=== PATIENT | female | born 1945 | race Caucasian/White ===

== ENCOUNTER → 2018-01-15 | Outpatient (CLI) | payer MEDICARE, OTHER ==
[~2018-01-15] MED LIST: ACET-458 PO; AMLO10TA2 PO; BACL-19 PO; CALC1TAB2 PO; CHOL200074 PO; CITA10TA4 PO; DIPH25CA61 PO; FENT1PAT77 TD; FISH1CAP PO; FURO40TA6 PO; GABA-826 PO; GABA300C10 PO; HYDR-3245 PO; HYDR25TA6 PO; LISI-170 PO; LISI40TA PO; MELO15TA24 PO; METF500T9 PO; METH750T2 PO; METO-99 PO; METO50TA82 PO; MORP-52 PO; MULT-658 PO; OMEP-110 PO; OXYC1TAB9 PO; OXYC5CAP2 PO; POTA10CA PO; POTA10TA6 PO; PRAV20TA2 PO; TIZA4TAB PO; VERA120T5 PO
[2018-01-15 14:40] LABS: BASOPHILS # (AUTO) 0.04 x10^3/uL (0-0.1); BASOPHILS % (AUTO) 1 % (0-1); EOSINOPHILS # (AUTO) 0.24 x10^3/uL (0-0.4); EOSINOPHILS % (AUTO) 3 % (1-7); LYMPHOCYTES # (AUTO) 1.72 x10^3/uL (1-3.4); LYMPHOCYTES % (AUTO) 24 % (22-44); MD NO; MEAN CORPUSCULAR HEMOGLOBIN 30.2 pg (27.0-34.8); MEAN CORPUSCULAR HGB CONC 32.8 g/dL (32.4-35.8); MEAN CORPUSCULAR VOLUME 92.1 fL (80-100); MEAN PLATELET VOLUME 7.9 fL (7.4-10.4); MONOCYTES % (AUTO) 8 % (2-9); NEUTROPHILS # (AUTO) 4.53 x10^3/uL (1.8-6.8); NEUTROPHILS % (AUTO) 64 % (42-75); PLATELET COUNT 296 x10^3/uL (130-400); RED BLOOD COUNT 4.47 x10^6/uL (3.82-5.3); RED CELL DISTRIBUTION WIDTH 13.1 % (9.6-15.2)
[2018-01-15 14:49] LABS: ALANINE AMINOTRANSFERASE 22 U/L (12-78); ALBUMIN 3.7 g/dL (3.4-5.0); ANION GAP 6 mmol/L (5-15); CALCIUM 8.8 mg/dL (8.5-10.1); CHLORIDE 103 mmol/L (98-107); CREATININE 0.81 mg/dL (0.55-1.02)
[2018-01-15 14:51] LABS: ALKALINE PHOSPHATASE 71 U/L (45-117); BILIRUBIN,TOTAL 0.4 mg/dL (0.2-1.0); TOTAL PROTEIN 7.3 g/dL (6.4-8.2)
[2018-01-15 14:52] LABS: CULTURE INDICATED? NO; MICROSCOPIC NOT IND
== END | disposition home or self-care (01) ==
LOC: STAR 13:23
PROVIDERS: ATTEND Orthopaedic Surgery
DX: Z01.818 Encounter for other preprocedural examination (principal); M17.12 Unilateral primary osteoarthritis, left knee; Z96.652 Presence of left artificial knee joint
CPT/HCPCS: 36415; 80053; 81003; 85025; 87081; 93005

== ENCOUNTER 2018-01-22 05:40 | Inpatient (IN) | payer MEDICARE, OTHER ==
[~2018-01-22] VITALS: Ht 162.6 cm; Wt 100.0 kg
[2018-01-22] MEDS ORDERED: SODIUM CHLORIDE 0.9% 100 ML ONE (06:22)
[2018-01-22] MEDS ORDERED: TRANEXAMIC ACID 100 MG/ML, 10ML ONE (06:22)
[2018-01-22] MEDS ORDERED: VANCOMYCIN 1,000 MG ONE (06:22)
[2018-01-22] MEDS ORDERED: EPINEPHRINE 1 MG/ML, 1ML ONE (06:22)
[2018-01-22] MEDS ORDERED: KETOROLAC 60 MG/2 ML ONE (06:22)
[2018-01-22] MEDS ORDERED: ROPIvacaine/PF 0.2%, 20 ML ONE (06:23)
[2018-01-22] MEDS ORDERED: VANCOMYCIN 1,500 MG in SODIUM CHLORIDE 0.9% 250 ML IV ONE (06:30)
[2018-01-22] MEDS ORDERED: VANCOMYCIN PER PHARMACY MC PRN (06:30)
[2018-01-22] MEDS ORDERED: LACTATED RINGERS 1,000 ML IV SCH (06:35)
[2018-01-22] MEDS ORDERED: FENTANYL PF 250 MCG/5ML ONE (06:54)
[2018-01-22] MEDS ORDERED: MIDAZOLAM 1 MG/ML, 2ML ONE (06:54)
[2018-01-22 07:20] VITALS: BP 159/76
[2018-01-22] MEDS ORDERED: GABAPENTIN 300 MG CAPSULE PO ONE (07:30)
[2018-01-22] MEDS ORDERED: OxyconTIN ER 10 MG TAB.ER PO ONE (07:30)
[2018-01-22] MEDS ORDERED: ACETAMINOPHEN 500 MG TABLET PO ONE (07:30)
[2018-01-22] MEDS ORDERED: ALBUTEROL SULFATE 2.5 MG/3 ML NPPB PRN (08:00)
[2018-01-22] MEDS ORDERED: hydrALAzine 20 MG/ML, 1ML IV PRN (08:00)
[2018-01-22] MEDS ORDERED: LABETALOL 5MG/ML, 20ML IV PRN (08:00)
[2018-01-22] MEDS ORDERED: OXYcodone 5 MG/5 ML ORAL.SOL UDC PO PRN (08:00)
[2018-01-22] MEDS ORDERED: PROMETHAZINE 25 MG/ML, 1ML IV PRN (08:00)
[2018-01-22] MEDS ORDERED: MORPHINE SULFATE 4 MG/ML, 1ML IVPush PRN (08:00)
[2018-01-22] MEDS ORDERED: PROMETHAZINE 25 MG/ML, 1ML IM PRN ×2 (08:00→09:00)
[2018-01-22] MEDS ORDERED: MEPERIDINE/PF 25MG/0.5ML IVPush PRN (08:00)
[2018-01-22] MEDS ORDERED: LORazepam 2 MG/ML, 1ML IVPush PRN (08:00)
[2018-01-22] MEDS ORDERED: PROMETHAZINE 25 MG SUPP PR PRN (08:00)
[2018-01-22] MEDS ORDERED: OXYcodone 5 MG/5 ML ORAL.SOL UDC ONE (08:52)
[2018-01-22] MEDS ORDERED: FENTANYL PF 100 MCG/2ML ONE ×2 (08:52→10:09)
[2018-01-22] MEDS: FENTANYL PF 100 MCG/2ML IV PRN ×4 (08:55→10:20)
[2018-01-22] MEDS: METOPROLOL TARTRATE 100 MG TABLET PO SCH (09:00)
[2018-01-22] MEDS ORDERED: PROMETHAZINE 12.5 MG SUPP PR PRN (09:00)
[2018-01-22] MEDS: OXYcodone IR 5MG TABLET PO SCH ×4 (09:00→23:54)
[2018-01-22] MEDS ORDERED: BISACODYL 10 MG SUPP PR PRN (09:00)
[2018-01-22] MEDS ORDERED: ONDANSETRON 4 MG TABLET PO PRN (09:00)
[2018-01-22] MEDS ORDERED: SENNA/DOCUSATE TABLET PO PRN (09:00)
[2018-01-22] MEDS ORDERED: ONDANSETRON 2MG/ML, 2ML IV PRN (09:00)
[2018-01-22] MEDS ORDERED: HYDROmorphone 1 MG/ML, 1ML IV PRN (09:00)
[2018-01-22] MEDS ORDERED: OXYcodone IR 5MG TABLET PO PRN (09:00)
[2018-01-22] MEDS ORDERED: ALUMINUM/MAG/SIMETHICONE 30 ML UDC PO PRN (09:00)
[2018-01-22] MEDS ORDERED: POTASSIUM CHLORIDE 10 MEQ TABLET.ER PO PRN (09:00)
[2018-01-22] MEDS ORDERED: FUROSEMIDE 40 MG TABLET PO PRN (09:00)
[2018-01-22] MEDS ORDERED: DIAZEPAM 5 MG TABLET PO PRN (09:00)
[2018-01-22] MEDS ORDERED: DIPHENHYDRAMINE 50 MG CAPSULE PO PRN (09:00)
[2018-01-22] MEDS: ACETAMINOPHEN 650 MG/20.3 ML UDC PO SCH ×2 (09:00→15:16)
[2018-01-22] MEDS: BACLOFEN 10 MG TABLET PO SCH ×2 (09:00→21:57)
[2018-01-22] MEDS: LISINOPRIL 20 MG TABLET PO SCH (09:00)
[2018-01-22] MEDS: metFORMIN XR 500 MG TAB.ER.24H PO SCH ×2 (09:00→21:57)
[2018-01-22] MEDS ORDERED: MAGNESIUM HYDROXIDE 8%, 30ML UDC PO PRN (09:00)
[2018-01-22] MEDS ORDERED: ZOLPIDEM 5MG TABLET PO PRN (09:00)
[2018-01-22] MEDS: HYDROCHLOROTHIAZIDE 25 MG TABLET PO SCH (09:00)
[2018-01-22] MEDS ORDERED: HYDROmorphone 2 MG/ML, 1ML ONE (09:01)
[2018-01-22] MEDS: HYDROmorphone 1 MG/ML, 1ML IV PRN ×5 (09:05→09:50)
[2018-01-22] MEDS ORDERED: ONDANSETRON ODT 4 MG ONE (09:23)
[2018-01-22] MEDS ORDERED: ONDANSETRON ODT 8 MG PO ONE (09:30)
[2018-01-22] MEDS ORDERED: TRANEXAMIC ACID 1,000 MG in SODIUM CHLORIDE 0.9% 100 ML IVPB ONE (09:30)
[2018-01-22] MEDS: INSULIN REGULAR 100 UNITS/ML, 3ML VIAL SQ-INSULIN SCH ×3 (11:00→21:55)
[2018-01-22] MEDS: DOCUSATE 100 MG CAPSULE PO SCH ×2 (12:31→21:57)
[2018-01-22] MEDS: OMEPRAZOLE 20 MG CAPSULE.DR PO SCH ×2 (12:31→21:56)
[2018-01-22] MEDS: MULTIVITAMINS/MINERALS TABLET PO SCH (12:31)
[2018-01-22] MEDS: GABAPENTIN 300 MG CAPSULE PO PRN ×2 (12:31→21:56)
[2018-01-22 12:58] VITALS: BP 118/52
[2018-01-22] MEDS: D5%-0.45% NACL 1,000 ML IV SCH ×2 (15:10→22:00)
[2018-01-22] MEDS: CEFAZOLIN PMX 2GM/50ML 50 ML IVPB SCH ×2 (15:15→23:49)
[2018-01-22] MEDS ORDERED: DEXAMETHASONE 4 MG/ML, 1ML ONE (15:27)
[2018-01-22] MEDS ORDERED: PROPOFOL 10 MG/ML, 20ML ONE (15:27)
[2018-01-22] MEDS ORDERED: SUCCINYLCHOLINE 20 MG/ML, 10ML ONE (15:27)
[2018-01-22] MEDS ORDERED: CEFAZOLIN 1,000 MG ONE (15:27)
[2018-01-22] MEDS: ASPIRIN 81 MG TABLET EC PO SCH (18:37)
[2018-01-22 20:26] VITALS: BP 154/83
[2018-01-22] MEDS ORDERED: CITALOPRAM 20 MG TABLET PO SCH (21:00)
[2018-01-22] MEDS ORDERED: VERAPAMIL ER 240MG TABLET.ER PO SCH (21:00)
[2018-01-22] MEDS ORDERED: PRAVASTATIN 20 MG TABLET PO SCH (21:00)
[2018-01-22] MEDS: ACETAMINOPHEN 325 MG TABLET PO SCH (21:58)
[2018-01-23 00:05] VITALS: BP 150/79
[2018-01-23 03:28] VITALS: BP 155/82
[2018-01-23] MEDS: ACETAMINOPHEN 325 MG TABLET PO SCH ×2 (03:59→12:09)
[2018-01-23] MEDS: OXYcodone IR 5MG TABLET PO SCH ×3 (04:00→12:08)
[2018-01-23] MEDS: D5%-0.45% NACL 1,000 ML IV SCH (06:00)
[2018-01-23] MEDS ORDERED: DEXAMETHASONE 4 MG/ML, 1ML IVPush SCH (06:00)
[2018-01-23] MEDS: ASPIRIN 81 MG TABLET EC PO SCH (06:24)
[2018-01-23] MEDS: INSULIN REGULAR 100 UNITS/ML, 3ML VIAL SQ-INSULIN SCH ×2 (06:37→12:09)
[2018-01-23 07:31] VITALS: BP 144/75
[2018-01-23] MEDS: HYDROCHLOROTHIAZIDE 25 MG TABLET PO SCH (08:14)
[2018-01-23] MEDS: DOCUSATE 100 MG CAPSULE PO SCH (08:14)
[2018-01-23] MEDS: BACLOFEN 10 MG TABLET PO SCH (08:14)
[2018-01-23] MEDS: OMEPRAZOLE 20 MG CAPSULE.DR PO SCH (08:14)
[2018-01-23] MEDS: metFORMIN XR 500 MG TAB.ER.24H PO SCH (08:14)
[2018-01-23] MEDS: MULTIVITAMINS/MINERALS TABLET PO SCH (08:14)
[2018-01-23] MEDS: LISINOPRIL 20 MG TABLET PO SCH (08:15)
[2018-01-23] MEDS: METOPROLOL TARTRATE 100 MG TABLET PO SCH (08:19)
[2018-01-23] MEDS ORDERED: KETOROLAC 30 MG/1 ML IV SCH (09:00)
== END 2018-01-23 13:15 | disposition home or self-care (01) | DRG 489 ==
LOC: ORIP 05:40 → 4NOR 11:24 → DCLOUNGE 01-23 13:00
PROVIDERS: ADMIT Orthopaedic Surgery; ATTEND Orthopaedic Surgery
PROC: 0SUW09Z Supplement Left Knee Joint, Tibial Surface with Liner, Open Approach (ICD-10-PCS; 2018-01-22)
PROC: 0SPD09Z Removal of Liner from Left Knee Joint, Open Approach (ICD-10-PCS; principal; 2018-01-22 07:30)
DX: T84.023A Instability of internal left knee prosthesis, initial encounter (principal); T84.84XA Pain due to internal orthopedic prosthetic devices, implants and grafts, initial encounter; E11.9 Type 2 diabetes mellitus without complications; E66.9 Obesity, unspecified; E78.5 Hyperlipidemia, unspecified; Z96.651 Presence of right artificial knee joint; I10 Essential (primary) hypertension; Y79.2 Prosthetic and other implants, materials and accessory orthopedic devices associated with adverse incidents; Y83.1 Surgical operation with implant of artificial internal device as the cause of abnormal reaction of the patient, or of later complication, without mention of misadventure at the time of the procedure; Z87.11 Personal history of peptic ulcer disease; Z90.710 Acquired absence of both cervix and uterus; Y92.89 Other specified places as the place of occurrence of the external cause; Z68.37 Body mass index [BMI] 37.0-37.9, adult
CPT/HCPCS: 36415; 82962; 85014; 85018; J0171; J0690; J1100; J1170; J1815; J1885; J2250; J2704; J2795; J3010; J3370; Q0162; C1776; J0330; J7050; J7120

== ENCOUNTER 2019-01-01 17:03 | Inpatient (IN) | payer MEDICARE, OTHER ==
[~2019-01-01] VITALS: Ht 162.6 cm; Wt 105.1 kg
[~2019-01-01 17:03] MED LIST changes: -AMLO10TA2 PO; +AMLO10TA8 PO; +OXYC-432 PO; -OXYC1TAB9 PO
--- NOTE | 2019-01-01 17:10 | NUR ---
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 THE FOOT IN EXTERNALLY ROTATED SLIGHTLY, AND SENSATION INTACT. PATIENT REPORTS PAIN AT A 5 OF 10. PATIENT HAD 200 MG FENTANYL IN ROUTE AND 2 MG VERSED. PATIENT ARRIVES WITH RESMA. PLACED IN GOWN, IN BED.
--- NOTE | 2019-01-01 17:41 | NUR ---
PATIENT BLOOD DRAWN. ON MONITOR. EKG DONE. PATIENT AWAITING RADIOLOGY STUDIES. FRIENDS AT BEDSIDE. CALM AND CHATTY WITH FRIENDS. WILL MONITOR. RAILS UP.
[2019-01-01 17:49] LABS: BASOPHILS # (AUTO) 0.03 x10^3/uL (0-0.1); BASOPHILS % (AUTO) 0 % (0-1); EOSINOPHILS # (AUTO) 0.15 x10^3/uL (0-0.4); EOSINOPHILS % (AUTO) 1 % (1-7); LYMPHOCYTES # (AUTO) 0.99 x10^3/uL (1-3.4); LYMPHOCYTES % (AUTO) 9 % (22-44); MD NO; MEAN CORPUSCULAR HEMOGLOBIN 30.2 pg (27.0-34.8); MEAN CORPUSCULAR HGB CONC 33.1 g/dL (32.4-35.8); MEAN CORPUSCULAR VOLUME 91.2 fL (80-100); MEAN PLATELET VOLUME 7.9 fL (7.4-10.4); MONOCYTES # (AUTO) 0.45 x10^3/uL (0.2-0.8); MONOCYTES % (AUTO) 4 % (2-9); NEUTROPHILS # (AUTO) 9.24 x10^3/uL (1.8-6.8); NEUTROPHILS % (AUTO) 85 % (42-75); PLATELET COUNT 279 x10^3/uL (130-400); RED BLOOD COUNT 4.21 x10^6/uL (3.82-5.3); RED CELL DISTRIBUTION WIDTH 13.4 % (9.6-15.2)
[2019-01-01 17:58] LABS: INTERNATIONAL NORMALIZED RATIO 0.97 (0.93-1.1); PROTHROMBIN TIME 10.2 Seconds (9.6-11.5)
[2019-01-01] MEDS ORDERED: SODIUM CHLORIDE FLUSH 10ML SYR IVF ONE (18:00)
[2019-01-01 18:05] LABS: CHLORIDE 101 mmol/L (98-107)
[2019-01-01 18:11] LABS: ALBUMIN 3.8 g/dL (3.4-5.0); ANION GAP 7 mmol/L (5-15); CALCIUM 8.5 mg/dL (8.5-10.1); CREATININE 0.91 mg/dL (0.55-1.02)
[2019-01-01] MEDS ORDERED: HYDROmorphone 2 MG/ML, 1ML ONE ×2 (18:40→19:30)
[2019-01-01] MEDS: HYDROmorphone 2 MG/ML, 1ML IVPush PRN ×2 (18:43→19:37)
--- NOTE | 2019-01-01 18:47 | NUR ---
patient has a fracture and is awaiting surgery consult and admission. treated for pain, she states pain a 8 of 10. on monitor, rails up. family at bedside. aox4, talkative. will monitor
--- NOTE | 2019-01-01 19:07 | NUR ---
REPORT RECEIVED FROM ARRON ENRIQUEZ. ASSUMED CARE OF PT. PT RESTING ON GURNEY IN NAD. STATES PAIN IS UNDER CONTROL AT THIS TIME. AWAITING KNEE IMMOBILIZER TO BE PLACED. VITALS STABLE, WILL CONTINUE TO MONITOR.
[2019-01-01] MEDS ORDERED: HYDROmorphone 1 MG/ML, 1ML INJ IVPush PRN (19:30)
[2019-01-01] MEDS ORDERED: ONDANSETRON 2MG/ML, 2ML IVPush PRN ×2 (19:30→20:00)
[2019-01-01] MEDS ORDERED: SODIUM CHLORIDE FLUSH 10ML SYR IVF PRN (19:30)
--- NOTE | 2019-01-01 19:40 | NUR ---
PT MEDICATED PER EMAR FOR PAIN PRIOR TO PUTTING ON KNEE IMMOBILIZER. PT TOLERATED WELL. PT REPORTS PAIN A 7/10. FAMILY AT BEDSIDE. AWAITING BED AT THIS TIME.
--- NOTE | 2019-01-01 19:47 | NUR ---
KNEE IMMOBIZILER PLACED ON PATIENTS LEFT LEG.
[2019-01-01] MEDS ORDERED: FUROSEMIDE 40 MG TABLET PO PRN (20:00)
[2019-01-01] MEDS: BACLOFEN 10 MG TABLET PO SCH (20:03)
--- NOTE | 2019-01-01 20:04 | NUR ---
PURE WICK APPLIED. PT TOLERATED WELL. 500ML OF CLEAR URINE OUTPUT. PT MEDICATED PER EMAR FOR SPASMS. 5 RIGHTS ADDRESSED.
--- NOTE | 2019-01-01 20:12 | NUR ---
REPORT TO ARRON SAPP.
[2019-01-01] MEDS: INSULIN LISPRO 100 UNITS/ML, PEN SQ-INSULIN SCH (21:00)
[2019-01-01] MEDS: PRAVASTATIN 20 MG TABLET PO SCH (21:32)
[2019-01-01] MEDS: CITALOPRAM 20 MG TABLET PO SCH (21:32)
[2019-01-01] MEDS: OMEPRAZOLE 20 MG CAPSULE.DR PO SCH (21:32)
[2019-01-01] MEDS: OXYcodone/APAP 10/325MG TABLET PO SCH (21:32)
[2019-01-01] MEDS: VERAPAMIL ER 240MG TABLET.ER PO SCH (21:32)
[2019-01-01] MEDS: DIPHENHYDRAMINE 50 MG CAPSULE PO SCH (21:32)
[2019-01-01] MEDS: morphine SULFATE 10 MG/ML, 1ML IVPush PRN ×2 (21:33→22:01)
[2019-01-02 01:42] VITALS: BP 129/77
[2019-01-02 05:23] LABS: CHLORIDE 102 mmol/L (98-107)
[2019-01-02 05:26] LABS: BASOPHILS # (AUTO) 0.02 x10^3/uL (0-0.1); BASOPHILS % (AUTO) 0 % (0-1); EOSINOPHILS # (AUTO) 0.14 x10^3/uL (0-0.4); EOSINOPHILS % (AUTO) 2 % (1-7); LYMPHOCYTES # (AUTO) 1.34 x10^3/uL (1-3.4); LYMPHOCYTES % (AUTO) 18 % (22-44); MD NO; MEAN CORPUSCULAR HEMOGLOBIN 29.9 pg (27.0-34.8); MEAN CORPUSCULAR HGB CONC 32.9 g/dL (32.4-35.8); MEAN CORPUSCULAR VOLUME 90.8 fL (80-100); MONOCYTES # (AUTO) 0.71 x10^3/uL (0.2-0.8); MONOCYTES % (AUTO) 10 % (2-9); NEUTROPHILS # (AUTO) 5.12 x10^3/uL (1.8-6.8); NEUTROPHILS % (AUTO) 70 % (42-75); PLATELET COUNT 247 x10^3/uL (130-400); RED BLOOD COUNT 3.75 x10^6/uL (3.82-5.3); RED CELL DISTRIBUTION WIDTH 12.9 % (9.6-15.2)
[2019-01-02 05:27] LABS: ANION GAP 6 mmol/L (5-15); CALCIUM 8.6 mg/dL (8.5-10.1); CREATININE 0.79 mg/dL (0.55-1.02)
[2019-01-02] MEDS: INSULIN LISPRO 100 UNITS/ML, PEN SQ-INSULIN SCH ×4 (06:17→21:00)
[2019-01-02 08:58] VITALS: BP 159/80
[2019-01-02] MEDS: LISINOPRIL 40 MG TABLET PO SCH (08:59)
[2019-01-02] MEDS: BACLOFEN 10 MG TABLET PO SCH ×2 (08:59→21:15)
[2019-01-02] MEDS: OMEPRAZOLE 20 MG CAPSULE.DR PO SCH ×2 (09:00→21:14)
[2019-01-02] MEDS: HYDROCHLOROTHIAZIDE 25 MG TABLET PO SCH (09:00)
[2019-01-02] MEDS: MELOXICAM 15 MG TABLET PO SCH (09:00)
[2019-01-02] MEDS: METOPROLOL TARTRATE 100 MG TABLET PO SCH (09:00)
[2019-01-02] MEDS: OXYcodone/APAP 10/325MG TABLET PO SCH ×2 (09:00→21:15)
[2019-01-02] MEDS: GABAPENTIN 300 MG CAPSULE PO PRN ×3 (10:31→23:16)
[2019-01-02 13:36] VITALS: BP 146/88
[2019-01-02] MEDS: OXYcodone/APAP 5/325MG TABLET PO PRN ×2 (13:44→18:25)
[2019-01-02 18:51] VITALS: BP 146/76
[2019-01-02] MEDS: DIPHENHYDRAMINE 50 MG CAPSULE PO SCH (21:14)
[2019-01-02] MEDS: CITALOPRAM 20 MG TABLET PO SCH (21:15)
[2019-01-02] MEDS: PRAVASTATIN 20 MG TABLET PO SCH (21:15)
[2019-01-02] MEDS: VERAPAMIL ER 240MG TABLET.ER PO SCH (21:15)
[2019-01-03 01:17] VITALS: BP 135/74
[2019-01-03] MEDS: morphine SULFATE 10 MG/ML, 1ML IVPush PRN (01:40)
[2019-01-03] MEDS: INSULIN LISPRO 100 UNITS/ML, PEN SQ-INSULIN SCH ×4 (06:25→21:49)
[2019-01-03] MEDS ORDERED: CLINDAMYCIN 150 MG/ML, 6ML ONE (07:49)
[2019-01-03] MEDS ORDERED: FENTANYL PF 250 MCG/5ML ONE (07:51)
[2019-01-03] MEDS ORDERED: SUCCINYLCHOLINE 20 MG/ML, 10ML ONE (07:59)
[2019-01-03] MEDS ORDERED: CEFAZOLIN 1,000 MG ONE (07:59)
[2019-01-03] MEDS ORDERED: DEXAMETHASONE 4 MG/ML, 1ML ONE (07:59)
[2019-01-03] MEDS ORDERED: NEOSTIGMINE 1 MG/ML, 10ML ONE (07:59)
[2019-01-03] MEDS ORDERED: ROCURONIUM 10MG/ML,5ML ONE (07:59)
[2019-01-03] MEDS ORDERED: ONDANSETRON 2MG/ML, 2ML ONE (07:59)
[2019-01-03] MEDS ORDERED: PROPOFOL 10 MG/ML, 20ML ONE (07:59)
[2019-01-03] MEDS ORDERED: GLYCOPYRROLATE 0.2MG/1ML, 5ML ONE (07:59)
[2019-01-03] MEDS ORDERED: METOPROLOL 1 MG/ML, 5ML IV PRN (08:00)
[2019-01-03] MEDS ORDERED: PROMETHAZINE 25 MG/ML, 1ML IV PRN (08:00)
[2019-01-03] MEDS ORDERED: hydrALAzine 20 MG/ML, 1ML IV PRN (08:00)
[2019-01-03] MEDS ORDERED: LABETALOL 5MG/ML, 20ML IV PRN (08:00)
[2019-01-03] MEDS ORDERED: ACETAMINOPHEN 325 MG TABLET PO PRN (08:00)
[2019-01-03] MEDS ORDERED: OXYcodone 5 MG/5 ML ORAL.SOL UDC PO PRN (08:00)
[2019-01-03] MEDS ORDERED: LIDOCAINE 4%, 4 ML SYR/CANN TP ONE (08:00)
[2019-01-03] MEDS ORDERED: ONDANSETRON 2MG/ML, 2ML IV PRN ×2 (08:00→12:00)
[2019-01-03] MEDS ORDERED: ONDANSETRON ODT 8 MG PO PRN (08:00)
[2019-01-03] MEDS ORDERED: FENTANYL PF 100 MCG/2ML IV PRN (08:00)
[2019-01-03] MEDS ORDERED: FENTANYL PF 100 MCG/2ML ONE (08:32)
[2019-01-03] MEDS: MELOXICAM 15 MG TABLET PO SCH (09:00)
[2019-01-03] MEDS: LISINOPRIL 40 MG TABLET PO SCH (09:00)
[2019-01-03] MEDS: OXYcodone/APAP 10/325MG TABLET PO SCH ×2 (09:00→21:27)
[2019-01-03] MEDS: BACLOFEN 10 MG TABLET PO SCH ×2 (09:00→21:28)
[2019-01-03] MEDS: METOPROLOL TARTRATE 100 MG TABLET PO SCH (09:00)
[2019-01-03] MEDS: OMEPRAZOLE 20 MG CAPSULE.DR PO SCH ×2 (09:00→21:28)
[2019-01-03] MEDS: HYDROCHLOROTHIAZIDE 25 MG TABLET PO SCH (09:00)
[2019-01-03] MEDS ORDERED: OXYcodone 5 MG/5 ML ORAL.SOL UDC ONE (09:19)
[2019-01-03] MEDS ORDERED: ACETAMINOPHEN 650 MG/20.3 ML UDC ONE (09:19)
[2019-01-03] MEDS ORDERED: HYDROmorphone 2 MG/ML, 1ML ONE (09:19)
[2019-01-03] MEDS: HYDROmorphone 2 MG/ML, 1ML IVPush PRN ×3 (09:21→09:40)
[2019-01-03] MEDS: KETOROLAC 30 MG/1 ML IV SCH ×2 (11:55→21:27)
[2019-01-03] MEDS: morphine SULFATE 10 MG/ML, 1ML IV PRN (11:55)
[2019-01-03] MEDS ORDERED: HYDROcodone/APAP 7.5-325MG/15ML UDC PO PRN (12:00)
[2019-01-03] MEDS ORDERED: VANCOMYCIN PMX 1GM/200ML 200 ML IVPB ONE (12:30)
[2019-01-03 12:50] VITALS: BP 129/70
[2019-01-03 19:15] VITALS: BP 142/74
[2019-01-03] MEDS: SODIUM CHLORIDE FLUSH 10ML SYR IVF SCH (21:27)
[2019-01-03] MEDS: VERAPAMIL ER 240MG TABLET.ER PO SCH (21:27)
[2019-01-03] MEDS: DOCUSATE 100 MG CAPSULE PO SCH (21:27)
[2019-01-03] MEDS: DIPHENHYDRAMINE 50 MG CAPSULE PO SCH (21:27)
[2019-01-03] MEDS: CITALOPRAM 20 MG TABLET PO SCH (21:28)
[2019-01-03] MEDS: PRAVASTATIN 20 MG TABLET PO SCH (21:28)
[2019-01-04 00:26] VITALS: BP 145/74
[2019-01-04] MEDS: GABAPENTIN 300 MG CAPSULE PO PRN ×3 (03:29→22:48)
[2019-01-04] MEDS: KETOROLAC 30 MG/1 ML IV SCH (03:29)
[2019-01-04] MEDS: OXYcodone/APAP 5/325MG TABLET PO PRN (03:29)
[2019-01-04 04:17] VITALS: BP 130/74
[2019-01-04] MEDS: ENOXAPARIN 40 MG/0.4 ML SQ SCH (06:09)
[2019-01-04] MEDS: INSULIN LISPRO 100 UNITS/ML, PEN SQ-INSULIN SCH ×4 (07:33→21:10)
[2019-01-04 07:34] VITALS: BP 143/82
[2019-01-04] MEDS: HYDROCHLOROTHIAZIDE 25 MG TABLET PO SCH (09:09)
[2019-01-04] MEDS: OMEPRAZOLE 20 MG CAPSULE.DR PO SCH ×2 (09:09→21:07)
[2019-01-04] MEDS: MELOXICAM 15 MG TABLET PO SCH (09:09)
[2019-01-04] MEDS: OXYcodone/APAP 10/325MG TABLET PO SCH ×2 (09:09→21:07)
[2019-01-04] MEDS: DOCUSATE 100 MG CAPSULE PO SCH ×2 (09:09→21:07)
[2019-01-04] MEDS: LISINOPRIL 40 MG TABLET PO SCH (09:09)
[2019-01-04] MEDS: METOPROLOL TARTRATE 100 MG TABLET PO SCH (09:10)
[2019-01-04] MEDS: SODIUM CHLORIDE FLUSH 10ML SYR IVF SCH ×2 (09:10→21:10)
[2019-01-04] MEDS: BACLOFEN 10 MG TABLET PO SCH ×2 (09:10→21:07)
[2019-01-04 14:32] VITALS: BP 117/75
[2019-01-04] MEDS: morphine SULFATE 10 MG/ML, 1ML IV PRN (15:12)
[2019-01-04 18:32] VITALS: BP 115/69
[2019-01-04] MEDS: PRAVASTATIN 20 MG TABLET PO SCH (21:07)
[2019-01-04] MEDS: DIPHENHYDRAMINE 50 MG CAPSULE PO SCH (21:07)
[2019-01-04] MEDS: VERAPAMIL ER 240MG TABLET.ER PO SCH (21:07)
[2019-01-04] MEDS: CITALOPRAM 20 MG TABLET PO SCH (21:07)
[2019-01-05 01:28] VITALS: BP 143/72
[2019-01-05] MEDS: OXYcodone/APAP 5/325MG TABLET PO PRN ×2 (04:18→11:31)
[2019-01-05] MEDS: GABAPENTIN 300 MG CAPSULE PO PRN ×2 (06:27→14:30)
[2019-01-05] MEDS: ENOXAPARIN 40 MG/0.4 ML SQ SCH (06:27)
[2019-01-05 07:42] VITALS: BP 108/62
[2019-01-05] MEDS: INSULIN LISPRO 100 UNITS/ML, PEN SQ-INSULIN SCH ×3 (08:39→17:21)
[2019-01-05] MEDS: HYDROCHLOROTHIAZIDE 25 MG TABLET PO SCH (08:40)
[2019-01-05] MEDS: DOCUSATE 100 MG CAPSULE PO SCH (08:40)
[2019-01-05] MEDS: BACLOFEN 10 MG TABLET PO SCH (08:40)
[2019-01-05] MEDS: OMEPRAZOLE 20 MG CAPSULE.DR PO SCH (08:40)
[2019-01-05] MEDS: MELOXICAM 15 MG TABLET PO SCH (08:40)
[2019-01-05] MEDS: OXYcodone/APAP 10/325MG TABLET PO SCH (08:40)
[2019-01-05] MEDS: SODIUM CHLORIDE FLUSH 10ML SYR IVF SCH (08:40)
[2019-01-05] MEDS: METOPROLOL TARTRATE 100 MG TABLET PO SCH (08:40)
[2019-01-05] MEDS: LISINOPRIL 40 MG TABLET PO SCH (08:41)
[2019-01-05] MEDS ORDERED: MORP15TA3 PO (10:10)
[2019-01-05] MEDS ORDERED: ENOX40SY4 SQ (10:10)
[2019-01-05] MEDS ORDERED: TRAM50TA2 PO (10:10)
[2019-01-05] MEDS ORDERED: GABA300C10 PO (10:10)
[2019-01-05] MEDS ORDERED: ASPI-496 PO (10:12)
[2019-01-05] MEDS ORDERED: BISACODYL 10 MG SUPP PR PRN (12:30)
[2019-01-05] MEDS ORDERED: MAGNESIUM HYDROXIDE 8%, 30ML UDC PO PRN (12:30)
[2019-01-05 14:31] VITALS: BP 129/76
[2019-01-05 18:15] VITALS: BP 128/64
== END 2019-01-05 18:30 | DRG 481 ==
LOC: ED 19:32 → EDIP 19:34 → 4NOR 20:20
PROVIDERS: ADMIT Internal Medicine; ATTEND Internal Medicine
PROC: 0QSC04Z Reposition Left Lower Femur with Internal Fixation Device, Open Approach (ICD-10-PCS; principal; 2019-01-03 08:15)
DX: M97.12XA Periprosthetic fracture around internal prosthetic left knee joint, initial encounter (principal); R71.0 Precipitous drop in hematocrit; E11.9 Type 2 diabetes mellitus without complications; E66.01 Morbid (severe) obesity due to excess calories; E78.5 Hyperlipidemia, unspecified; Z68.39 Body mass index [BMI] 39.0-39.9, adult; I10 Essential (primary) hypertension; I34.1 Nonrheumatic mitral (valve) prolapse; Z96.653 Presence of artificial knee joint, bilateral; K21.9 Gastro-esophageal reflux disease without esophagitis; M19.90 Unspecified osteoarthritis, unspecified site; W18.2XXA Fall in (into) shower or empty bathtub, initial encounter; Y93.E1 Activity, personal bathing and showering; Y92.89 Other specified places as the place of occurrence of the external cause; Z87.11 Personal history of peptic ulcer disease; Z79.82 Long term (current) use of aspirin; Z88.0 Allergy status to penicillin; Z88.2 Allergy status to sulfonamides; Z90.711 Acquired absence of uterus with remaining cervical stump; Z88.8 Allergy status to other drugs, medicaments and biological substances
CPT/HCPCS: 29505; 36415; 71045; 76000; 80048; 82040; 82962; 85025; 85610; 85730; 93005; 96374; 96376; C1713; G0378; J0690; J1100; J1170; J1650; J1885; J2405; J2704; J2710; J3010; J3370; J0330; J1815; J2270